=== PATIENT | male | born 1955 | race Caucasian/White ===

== ENCOUNTER → 2016-06-15 | Outpatient (CLI) | payer OTHER ==
[2016-06-15 17:14] LABS: ABSOLUTE EOSINOPHILS # (AUTO) 0.1 10^3/uL (0.0-0.6); ABSOLUTE LYMPHOCYTES (AUTO) 2.3 10^3/uL (0.5-4.7); ABSOLUTE MONOCYTES (AUTO) 0.7 10^3/uL (0.1-1.4); ABSOLUTE NEUT (AUTO) 3.7 10^3/uL (1.7-8.2); BASOPHILS % (AUTO) 0.6 % (0-2); EOSINOPHILS % (AUTO) 1.7 % (0-6); HEMATOCRIT 43.8 % (37.9-51.0); HEMOGLOBIN 14.9 g/dL (13.5-17.0); HGB HCT DIFFERENCE 0.9; LYMPHOCYTES % (AUTO) 33.6 % (13-45); MEAN CORPUSCULAR HEMOGLOBIN 31.3 pg (27.0-33.4); MEAN CORPUSCULAR VOLUME 92 fl (80-97); RED BLOOD COUNT 4.76 10^6/uL (4.35-5.55); RED CELL DISTRIBUTION WIDTH 13.1 % (11.5-14.0); SEGMENTED NEUTROPHILS % (AUTO) 54.1 % (42-78); WHITE BLOOD COUNT 6.8 10^3/uL (4.0-10.5)
[2016-06-15 17:31] LABS: ALBUMIN 3.9 g/dL (3.5-5.0); ANION GAP 11 (5-19); BLOOD UREA NITROGEN 24 mg/dL (7-20); CALCIUM 9.7 mg/dL (8.4-10.2); CARBON DIOXIDE 31 mmol/L (22-30); CHLORIDE 101 mmol/L (98-107); GLUCOSE 88 mg/dL (75-110); PHOSPHORUS 3.6 mg/dL (2.5-4.5); POTASSIUM 4.9 mmol/L (3.6-5.0); SODIUM 142.5 mmol/L (137-145)
== END ==
LOC: OD 16:41
PROVIDERS: ATTEND Internal Medicine Cardiovascular Disease
DX: I48.0 Paroxysmal atrial fibrillation (principal)
CPT/HCPCS: 36415; 80069; 85025

== ENCOUNTER 2016-08-02 06:12 | Emergency (ER) | payer OTHER ==
--- NOTE | 2016-08-02 07:50 | ER Document Report ---
ED Neck/Back Problem - General Chief Complaint: Neck and Upper Back Pain Stated Complaint: NECK AND BACK PAIN Mode of Arrival: Ambulatory Information source: Patient Notes: Patient presents complaining of neck and upper back pain that started 3 days ago. Patient states that he recently had an aortic valve replacement surgery 5 weeks ago and has just been recently cleared to sleep lying down versus in a recliner. Patient states that he feels that he slept in the operative position and woke up with neck and upper back pain. Patient states pain is worse with movement. Patient denies any chest pain, cough, shortness of breath, nausea, or vomiting. Patient states pain worsens with lateral rotation of his head or with position changes. Patient states he was supposed to have outpatient lab work done today that he is missing his appointment due to being here today. Patient states that he has been giving himself Lovenox in addition to taking Coumadin as he recently had the cardiac surgery to correct A. fib and flutter and had additional ablation procedure performed TRAVEL OUTSIDE OF THE [place] IN LAST 30 DAYS: No - HPI Patient complains to provider of: Neck, Upper back Onset: Other - 3 days Timing: Still present Quality of pain: Achy, Sharp Pain Level: 4 Recent injury: No Associated symptoms: Upper back pain. denies: Chest pain, Abdominal pain, Fever , Like prior neck/back pain, Radiation to arm, Radiation to chest, Lower back pain Exacerbated by: Movement of neck Relieved by: Remaining still Similar symptoms previously: No Recently seen / treated by doctor: No - Related Data Allergies/Adverse Reactions: No Known Allergies Allergy (Verified 08/02/16 06:17) Past Medical History - General Information source: Patient - Social History Smoking Status: Never Smoker Chew tobacco use (# tins/day): No Frequency of alcohol use: None Drug Abuse: None Occupation: none Lives with: Spouse/Significant other Family History: Reviewed & Not Pertinent - Past Medical History Cardiac Medical History: Reports: Hx Atrial Fibrillation Renal/ Medical History: Denies: Hx Peritoneal Dialysis Past Surgical History: Reports: Hx Cardiac Surgery - Aortic valve replacement, cardiac ablation Review of Systems - Review of Systems Constitutional: No symptoms reported. denies: Fever, Recent illness EENT: No symptoms reported Cardiovascular: No symptoms reported. denies: Chest pain, Syncope, Dizziness, Lightheaded Respiratory: No symptoms reported. denies: Cough, Short of breath Gastrointestinal: No symptoms reported. denies: Abdominal pain, Diarrhea, Nausea, Vomiting Genitourinary: No symptoms reported Male Genitourinary: No symptoms reported Musculoskeletal: Back pain - Upper back, Neck pain - Lateral neck Skin: No symptoms reported Hematologic/Lymphatic: No symptoms reported Neurological/Psychological: No symptoms reported Physical Exam - Vital signs Vitals: Temp Pulse Resp BP Pulse Ox 97.9 F 89 16 121/72 96 08/02/16 06:16 08/02/16 06:16 08/02/16 06:16 08/02/16 06:16 08/02/16 06:16 - General General appearance: Appears well, Alert In distress: None - HEENT Head: Normocephalic, Atraumatic Eyes: Normal Conjunctiva: Normal Nasal: Normal Mouth/Lips: Normal Pharynx: Normal. No: Erythema Neck: No: Lymphadenopathy Notes: Left sternocleidomastoid muscle tenderness with spasm - Respiratory Respiratory status: No respiratory distress Chest status: Nontender Breath sounds: Normal. No: Rales, Rhonchi, Stridor, Wheezing Chest palpation: Normal - Cardiovascular Rhythm: Regular Heart sounds: S1 appreciated, S2 appreciated Murmur: No Pulses: Normal: Radial - Back Back: Tender - Bilateral trapezius muscle tenderness with spasm, left worse than right. No: Deformity/step-off, Vertebra tenderness - Extremities General upper extremity: Normal inspection, Normal strength General lower extremity: Normal inspection, Normal strength - Neurological Neuro grossly intact: Yes Cognition: Normal Orientation: AAOx4 [place] Coma Scale Eye Opening: Spontaneous [place] Coma Scale Verbal: Oriented [place] Coma Scale Motor: Obeys Commands [place] Coma Scale Total: 15 - Psychological Associated symptoms: Normal affect, Normal mood - Skin Skin Temperature: Warm Skin Moisture: Dry Skin Color: Normal Course - Re-evaluation Re-evalutation: 08/02/16 07:[address] Jennings regarding patient presentation. 08/02/16 10:23 Patient reports that back pain is much improved, patient able to move neck without guarding. Muscle spasms palpably improved - Vital Signs Vital signs: Temp Pulse Resp BP Pulse Ox 97.4 F 85 20 117/73 100 08/02/16 11:06 08/02/16 11:06 08/02/16 11:06 08/02/16 11:06 08/02/16 11:06 - Laboratory Result Diagrams: 08/02/16 08:17 08/02/16 08:17 Laboratory results interpreted by me: 08/02/16 08/02/16 08/02/16 08:17 08:17 08:17 WBC 12.2 H RBC 3.83 L Hgb 11.0 L Hct 33.4 L Lymphocytes % 9.3 L Absolute Neutrophils 9.2 H PT 28.3 H Alkaline Phosphatase 153 H Albumin 3.4 L HDL Cholesterol 39 L Labs- Entire Visit 08/02/16 08/02/16 08/02/16 08:17 08:17 08:17 WBC 12.2 H RBC 3.83 L Hgb 11.0 L Hct 33.4 L MCV 87 MCH 28.7 MCHC 32.9 RDW 13.3 Plt Count 318 Seg Neutrophils % 75.3 Lymphocytes % 9.3 L Monocytes % 11.2 Eosinophils % 3.9 Basophils % 0.3 Absolute Neutrophils 9.2 H Absolute Lymphocytes 1.1 Absolute Monocytes 1.4 Absolute Eosinophils 0.5 Absolute Basophils 0.0 PT 28.3 H INR 2.52 Sodium 141.3 Potassium 4.6 Chloride 101 Carbon Dioxide 30 Anion Gap 10 BUN 11 Creatinine 0.81 Est GFR ( Amer) > 60 Est GFR (Non-Af Amer) > 60 Glucose 102 Calcium 9.2 Total Bilirubin 0.7 Direct Bilirubin 0.0 AST 38 ALT 53 Alkaline Phosphatase 153 H Total Protein 7.1 Albumin 3.4 L Triglycerides 50 Cholesterol 120.95 LDL Cholesterol Direct 57 VLDL Cholesterol 10.0 HDL Cholesterol 39 L 08/02/16 10:24 Labs- Entire Visit 08/02/16 08/02/16 08/02/16 08:17 08:17 08:17 WBC 12.2 H RBC 3.83 L Hgb 11.0 L Hct 33.4 L MCV 87 MCH 28.7 MCHC 32.9 RDW 13.3 Plt Count 318 Seg Neutrophils % 75.3 Lymphocytes % 9.3 L Monocytes % 11.2 Eosinophils % 3.9 Basophils % 0.3 Absolute Neutrophils 9.2 H Absolute Lymphocytes 1.1 Absolute Monocytes 1.4 Absolute Eosinophils 0.5 Absolute Basophils 0.0 PT 28.3 H INR 2.52 Sodium 141.3 Potassium 4.6 Chloride 101 Carbon Dioxide 30 Anion Gap 10 BUN 11 Creatinine 0.81 Est GFR ( Amer) > 60 Est GFR (Non-Af Amer) > 60 Glucose 102 Calcium 9.2 Total Bilirubin 0.7 Direct Bilirubin 0.0 AST 38 ALT 53 Alkaline Phosphatase 153 H Total Protein 7.1 Albumin 3.4 L Triglycerides 50 Cholesterol 120.95 LDL Cholesterol Direct 57 VLDL Cholesterol 10.0 HDL Cholesterol 39 L 08/02/16 19:18 Discharge - Discharge Clinical Impression: Trapezius muscle spasm Condition: Stable Disposition: HOME, SELF-CARE Instructions: Muscle Relaxers ([facility]), Muscle Strain ([facility]), Oral Narcotic Medication ([facility]), Warm Packs ([facility]) Additional Instructions: Return immediately for any new or worsening symptoms, chest pain, nausea, vomiting, shortness of breath, lightheadedness, dizziness, or any concerning symptoms Followup with your primary care provider, call them today and let them know what your INR test results are. Prescriptions: Cyclobenzaprine HCl [Flexeril 10 Mg Tablet] 10 mg PO TID #15 tablet Oxycodone HCl/Acetaminophen [Percocet 5-325 mg Tablet] 1 tab PO ASDIR PRN #12 tablet PRN Reason: Referrals: NASIR SCOTT MD [NO LOCAL MD] - Follow up tomorrow
[2016-08-02] MEDS ORDERED: OXYCODONE-ACETAMINOPHEN 5-325 MG TABLET PO ONE (07:52)
[2016-08-02 08:39] LABS: ABSOLUTE EOSINOPHILS # (AUTO) 0.5 10^3/uL (0.0-0.6); ABSOLUTE LYMPHOCYTES (AUTO) 1.1 10^3/uL (0.5-4.7); ABSOLUTE MONOCYTES (AUTO) 1.4 10^3/uL (0.1-1.4); ABSOLUTE NEUT (AUTO) 9.2 10^3/uL (1.7-8.2); BASOPHILS % (AUTO) 0.3 % (0-2); EOSINOPHILS % (AUTO) 3.9 % (0-6); HEMATOCRIT 33.4 % (37.9-51.0); HGB HCT DIFFERENCE -0.4; LYMPHOCYTES % (AUTO) 9.3 % (13-45); MEAN CORPUSCULAR HEMOGLOBIN 28.7 pg (27.0-33.4); MEAN CORPUSCULAR HGB CONC 32.9 g/dL (32.0-36.0); MEAN CORPUSCULAR VOLUME 87 fl (80-97); MONOCYTES % (AUTO) 11.2 % (3-13); RED BLOOD COUNT 3.83 10^6/uL (4.35-5.55); RED CELL DISTRIBUTION WIDTH 13.3 % (11.5-14.0); SEGMENTED NEUTROPHILS % (AUTO) 75.3 % (42-78); WHITE BLOOD COUNT 12.2 10^3/uL (4.0-10.5)
[2016-08-02 08:53] LABS: PROTHROMBIN TIME 28.3 SEC (11.4-15.4)
[2016-08-02 08:56] LABS: ALANINE AMINOTRANSFERASE 53 U/L (21-72); ALBUMIN 3.4 g/dL (3.5-5.0); ALKALINE PHOSPHATASE 153 U/L (38-126); ANION GAP 10 (5-19); ASPARTATE AMINO TRANSFERASE 38 U/L (17-59); BILIRUBIN,TOTAL 0.7 mg/dL (0.2-1.3); BLOOD UREA NITROGEN 11 mg/dL (7-20); CALCIUM 9.2 mg/dL (8.4-10.2); CARBON DIOXIDE 30 mmol/L (22-30); CHLORIDE 101 mmol/L (98-107); CHOLESTEROL 120.95 mg/dL (0-200); CREATININE RESULT 0.81 mg/dL (0.52-1.25); Direct HDL 39 mg/dL (>40); GLUCOSE 102 mg/dL (75-110); POTASSIUM 4.6 mmol/L (3.6-5.0); SODIUM 141.3 mmol/L (137-145); TOTAL PROTEIN 7.1 g/dL (6.3-8.2); TRIGLYCERIDES 50 mg/dL (<150)
[2016-08-02 09:06] LABS: DIRECT LDL 57 mg/dL (<100)
[2016-08-02] MEDS ORDERED: CYCLOBENZAPRINE HCL 10 MG TABLET PO ONE (10:23)
[2016-08-02 11:08] VITALS: BP 117/73
== END 2016-08-02 11:06 | disposition home or self-care (01) ==
LOC: ER 06:12
DX: M62.830 Muscle spasm of back (principal); M62.838 Other muscle spasm; M54.2 Cervicalgia; M54.89 Other dorsalgia; Z95.2 Presence of prosthetic heart valve; Z98.890 Other specified postprocedural states; Z79.01 Long term (current) use of anticoagulants; Z79.02 Long term (current) use of antithrombotics/antiplatelets
CPT/HCPCS: 36415; 80053; 80061; 85025; 85610; 99283